=== PATIENT | male | born 1995 ===

== ENCOUNTER 2023-04-13 16:58 | Emergency (ER) | payer MEDICAID ==
[~2023-04-13] VITALS: Ht 175.3 cm; Wt 89.0 kg
[2023-04-13 18:11] VITALS: BP 120/81; PULSE 83; RESP 18; TEMP 99; O2SAT 98
[2023-04-13] MEDS ORDERED: IBUP-1986 PO ×2 (20:39→20:50)
[2023-04-13] MEDS ORDERED: AMOX-117 PO (20:39)
[2023-04-13] MEDS ORDERED: CLIN300C54 PO (20:50)
[2023-04-13] MEDS ORDERED: clindamycin 150mg capsule PO ONE (20:50)
[2023-04-13] MEDS ORDERED: ibuprofen tablet 400 MG TABLET PO ONE (20:50)
--- NOTE | 2023-04-13 21:18 | NUR ---
EMT STUDENT TRANSLATED FOR LIQUOR CLERK TO DO ASSESSMENT AND EDUCATION
== END 2023-04-13 21:20 | disposition home or self-care (01) ==
LOC: ER 17:01
DX: K04.7 Periapical abscess without sinus (principal); Z88.0 Allergy status to penicillin; Z79.1 Long term (current) use of non-steroidal anti-inflammatories (NSAID); Z79.2 Long term (current) use of antibiotics
CPT/HCPCS: 99283